=== PATIENT | male | born 1975 | race Caucasian/White ===

== ENCOUNTER 2024-04-10 07:33 | Emergency (ER) | payer BC, SELFPAY ==
[2024-04-10 07:35] VITALS: BP 130/75; PULSE 86; RESP 16; TEMP 36.8; O2SAT 97; BMI 26.3
--- NOTE | 2024-04-10 08:00 | CT_ITS ---
STUDY: CT SOFT TISSUE NECK WITH CONTRAST REASON FOR EXAM: Male, 48 years old. upper neck pain with extension and looking left R -- pt can look down fine RADIATION DOSAGE (If Supplied By Facility): CTDIvol = ( 16.42 ) mGy, DLP = ( 496.24 ) mGycm TECHNIQUE: The patient was scanned in a multi-detector CT scanner. High resolution transaxial imaging was performed following intravenous administration of IV 100mL Isovue-370. Sagittal and coronal images were reconstructed. Individualized dose optimization techniques were used for this CT. COMPARISON: None. FINDINGS: Normal bilateral parotid glands. Normal bilateral motor coach operator spaces. Normal bilateral parapharyngeal spaces. Normal bilateral carotid spaces. Normal bilateral sublingual and submandibular glands and spaces. Normal visualized nasopharynx. Normal retropharyngeal space. Normal perivertebral space. Normal visualized bilateral faucial tonsils. The visualized tongue, tongue base and oropharynx are normal. The visualized cervical lymph nodes (levels I-) are within normal size limits, and maintain normal morphology. There is no demonstrated solid or cystic mass lesion. There is no abnormal contrast enhancement. Normal epiglottis, bilateral vallecula and hypopharynx. The pre-epiglottic and paraglottic adipose spaces are normal. Normal visualized bilateral piriform sinuses, aryepiglottic folds, vocal cords, and arytenoid-cricoid articulations. Normal subglottic trachea. Normal bilateral lobes of the thyroid gland. Normal visualized pulmonary apices. Normal visualized paranasal sinuses. Normal visualized cervical spine. CT/Soft Tissue Neck WITH Contrast IMPRESSION: Normal enhanced CT examination of the soft tissues of the neck. Electronically Signed: Joaquin Chavarria MD at 9:29 EDT ,
--- NOTE | 2024-04-10 08:01 | EKG12_ITS ---
Test Reason : GENERAL Blood Pressure : / mmHG Vent. Rate : 081 BPM Atrial Rate : 081 BPM P-R Int : 162 ms QRS Dur : 096 ms QT Int : 364 ms P-R-T Axes : 033 074 059 degrees QTc Int : 422 ms Normal sinus rhythm Normal ECG Confirmed by JOSE CONDON, CATARINA ([id number]), commercial production editor RAJI CROWE ([id number]) on 04/14/2024 9:52:34 AM Referred By: Confirmed By:J LUIS GARCIA MD
--- NOTE | 2024-04-10 08:11 | EX.ED.GENINJ ---
HPI History of Present Illness Chief Complaint: Other, Pain/Inj Narrative Narrative: Patient is a 48-year-old male with no known significant past medical history who presents to the emergency department with upper neck pain and some painful swallowing. He states that his symptoms started on Wednesday while he was driving home from work and progressively worsened throughout the weekend. Patient states that has not been around him very sick and denies any fevers or chills. Patient notes that it has become more painful for him to swallow and noted that it is painful for him to look up and to attempt to turn his head left and right however he states that he can look down without any difficulty. Patient denies any injury to his neck to cause his symptoms. PFSH PFSH Home Medications ?Medication ?Instructions ?Recorded ?Last Taken ?Type cyclobenzaprine 7.5 mg tablet 7.5 mg PO BID 5 days #10 tabs 04/10/24 Unknown Rx Allergy/AdvReac Type Severity Reaction Status Date / Time No Known Allergies Allergy Verified 04/10/24 07:34 Social History Smoking Status: Former smoker ROS ROS ED ROS Narrative Constitutional: Denies fevers, chills, headaches, lightheadedness, dizziness Eyes: Denies change with double vision blurry vision Cardiovascular: Denies chest pain or palpitations Respiratory: Denies coughing wheezing shortness of breath Abdomen: Denies abdominal pain nausea vomit diarrhea : Denies urinary symptoms Neurological: Denies numbness, weakness, tingling Musculoskeletal: Complains of neck pain as noted above Skin: Denies rashes or lesions EXAM Physical Exam Narrative Exam Narrative: General: Patient was lying in bed rest comfortably did not appear to be in acute distress Head: Atraumatic, normocephalic Eyes: Pupils equal round react to light bilaterally, extraocular muscles intact bilaterally, no conjunctival injection noted Ears nose throat: Posterior pharynx mildly erythematous, no evidence of tonsillar exudates or concern for tonsillar abscess, no sublingual swelling Neck: Soft, supple, trachea midline, no concern for Marquise's angina, patient has no tenderness palpation of the midline of the cervical spine, patient has pain with attempted range of motion looking up left and right however he can look down without any pain patient did note that he had tenderness palpation at the base of the skull and in the musculature lateral to his midline of the cervical spine. Cardiovascular: Regular rate and rhythm no murmurs gallops rubs noted Respiratory: Clear to auscultation bilaterally Abdomen: Soft, nondistended, nontender to palpation, bowel sounds present x 4 Musculoskeletal: No tenderness palpation throughout the lumbar spine in the midline Extremities: +5/5 strength noted in the bilateral upper and lower extremities, no pedal edema on exam, radial pulses +2/4 in bilateral per extremities Neurological: Patient following commands knew that he was at [facility] year is 2023. Sensation grossly intact when compared bilaterally throughout his body Skin: Warm, dry, intact. No rashes or lesions noted. Const Vital Signs: 04/10/24 07:35 Temperature 98.3 F Temperature Source Oral Pulse Rate 86 Respiratory Rate 16 Blood Pressure 130/75 H Blood Pressure Mean 93 Pulse Ox 97 Oxygen Delivery Method Room Air MDM MDM MDM Narrative Medical decision making narrative: Patient is a 48-year-old male who presents to the emergency department chief complaint of sore throat, neck pain as noted above. Patient will have a workup performed here on the differential diagnose includes but not limited to ACS, musculoskeletal strain, retropharyngeal abscess, strep throat, viral pharyngitis. Once workup is obtained reviewed he will be reevaluated. Patient CBC reviewed and showed no evidence of leukocytosis white blood count normal at 10, hemoglobin was 16.8, platelet count normal at 279. Patient sodium normal 142, potassium normal 4.3, creatinine normal at 1.20. Patient troponin normal at 6. Patient's EKG was reviewed as well which showed sinus rhythm with a rate of [address] soft tissue neck with contrast reviewed and showed normal enhanced CT examination of soft tissues in the neck. Did review the results with the patient and he states that he is feeling better after the muscle relaxant and the Toradol. He would like to go home at this point in time. Patient did inquire about the possibility of meningitis however he denies any recent sick contacts. I did notify him that his blood work overall is looking unremarkable his CT soft tissue neck also was unremarkable and he does have range of motion of his neck on exam. I did notify that we cannot fully rule this out unless lumbar puncture will be performed I described this procedure to him and at this point time he does not wish to proceed with this procedure. I did give him return precautions and including fever, worsening pain and inability to move his neck, rashes, difficulty swallowing or any other concerns he verbalized understanding of this as well as his significant other at bedside. Patient will be sent a prescription for muscle relaxant and was encouraged to use ibuprofen and Tylenol [id number] for pain control and encouraged stretching of his neck as this is likely musculoskeletal in nature. Patient was referred to a primary care physician and once again was encouraged to return with any other concerns. Lab Data Labs: Laboratory Results - last 24 hr 04/10/24 08:17 WBC 10.1 RBC 5.28 Hgb 16.8 H Hct 49.7 MCV 94.1 H MCH 31.8 MCHC 33.8 RDW Std Deviation 44.4 H RDW Coeff of Christiano 13.0 Plt Count 279 MPV 9.3 Immature Gran % (Auto) 0.200 Neut % (Auto) 76.7 H Lymph % (Auto) 12.6 L Towner % (Auto) 8.5 Eos % (Auto) 1.6 Baso % (Auto) 0.4 Absolute Neuts (auto) 7.8 H Absolute Lymphs (auto) 1.28 Nucleated RBC % 0 Sodium 142 Potassium 4.3 Chloride 111 H Carbon Dioxide 28.0 Anion Gap 3 L BUN 14 Creatinine 1.20 Estim Creat Clear Calc 89.43 Est GFR (MDRD) Af Amer 84 Est GFR (MDRD) Non-Af 69 BUN/Creatinine Ratio 11.7 Glucose 95 Lactic Acid 1.3 Calcium 8.3 L Troponin I High Sens 6 Radiography Diagnostic Testing: Clinical Impression(s) from Imaging Studies Soft Tissue Neck CT 04/10/24 08:00 IMPRESSION: Normal enhanced CT examination of the soft tissues of the neck. Electronically Signed: Joaquin Chavarria MD at 9:29 EDT , Discharge Plan Triage Chief Complaint: Other, Pain/Inj ED Provider: Brian Mcdermott Dx/Rx/DC Orders Clinical Impression: Acute neck pain Instructions: ED Neck Pain Prescriptions: New cyclobenzaprine 7.5 mg tablet 7.5 mg PO BID 5 Days Qty: 10 0RF Primary Care Provider: Care Physician,No Primary Referrals: Care Physician,No Primary [Primary Care Provider] - Omar Patterson MD [Med Staff - Active Staff] - Activity Restrictions/Additional Instructions: Take muscle relaxers as prescribed. Use ibuprofen/Tylenol [id number] for pain control. Stretch. Do not operate anything under the influence of muscle relaxants. Return for fever, rashes or lesions, worsening neck pain and inability to move your neck or any other concerns. Print Language: Gambian Disposition Disposition: Home, Self Care
[2024-04-10] MEDS: 0.9% Normal Saline (1000mL) 1,000 ML 999 ML IV (08:15)
[2024-04-10 08:34] LABS: Absolute Lymphocyte Count 1.28 X10^3/uL (0.83-4.51); Absolute Neutrophil Count 7.8 X10^3/uL (2.0-7.7); Basophil# 0.04 X10^3/uL; Basophil% 0.4 % (0-1); Eosinophil# 0.16 X10^3/uL; Eosinophils% 1.6 % (0-5); Hematocrit 49.7 % (40-54); Hemoglobin 16.8 g/dL (13.0-16.5); Lymphocyte # 1.28 X10^3/ul (0.83-4.51); Lymphocyte % 12.6 % (19-41); Mean Corp Hgb Conc 33.8 g/dL (32-36); Mean Corpuscular Hgb 31.8 pg (27.0-32.0); Mean Corpuscular Volume 94.1 fL (80-94); Mean Platelet Vol. 9.3 fl (6.2-12.0); Monocyte# 0.86 X10^3/uL; Monocyte% 8.5 % (0-10); NRBC Flagged by Analyzer 0 % (0-5); Neutrophil # 7.78 X10^3/uL (2.7-7.7); Neutrophil % 76.7 % (47-70); Platelet Count 279 K/mm3 (150-450); RBC Distribution Width SD 44.4 fl (35.1-43.9); Red Blood Count 5.28 M/mm3 (4.6-6.2); White Blood Count 10.1 K/mm3 (4.4-11.0)
[2024-04-10 08:49] LABS: Anion Gap 3 (5-15); BUN 14 mg/dL (7-18); BUN/Creat Ratio 11.7 RATIO (10-20); Calcium,Total 8.3 mg/dL (8.5-10.1); Chloride 111 mmol/L (98-107); EST Glomerular Filtration Rate 69 mL/min (>60); Est Glom Filt Rate - Afr Amer 84 mL/min (>60); Estimated Creatinine Clearance 89.43 ml/min; Glucose 95 mg/dL (74-106); Potassium 4.3 mmol/L (3.5-5.1); Sodium Level 142 mmol/L (136-145); Troponin-I HS 6 pg/mL (3.0-78.0)
[2024-04-10 09:09] LABS: Lactic Acid 1.3 mmol/L (0.4-1.9)
[2024-04-10] MEDS: Orphenadrine 60 MG/2 ML Ampul 30 MG IM (09:31)
[2024-04-10] MEDS: Ketorolac 30 MG/ML Syringe IV (10:19)
== END 2024-04-10 11:24 | disposition home or self-care (01) ==
PROVIDERS: Emergency Provider Emergency Medicine; Visit Provider Emergency Medicine
DX: M54.2 Cervicalgia (principal); Z87.891 Personal history of nicotine dependence; J02.9 Acute pharyngitis, unspecified
CPT/HCPCS: 70491; 80048; 83605; 84484; 85025; 87651; 93005; 96361; 96372; 96374; 99282; J7030; A4216